=== PATIENT | male | born 1950 | race Hispanic/Latino ===

== ENCOUNTER 2017-07-09 05:11 | Emergency (ER) | payer MEDICARE ==
[2017-07-09 05:48] LABS: APPEARANCE,URINE Cloudy (CLEAR); BILIRUBIN,URINE Negative (NEGATIVE); COLOR,URINE Yellow (YELLOW); GLUCOSE, URINE (UA) 500 mg/dL (NEGATIVE); KETONES,URINE Negative (NEGATIVE); LEUKOCYTE ESTERASE ,URINE Trace (NEGATIVE); NITRATE,URINE Negative (NEGATIVE); OCCULT BLOOD,URINE Large (NEGATIVE); PROTEIN,URINE POS 2+ (NEGATIVE)
[2017-07-09] MEDS ORDERED: MORPHINE SULFATE 4 MG/1ML SYG ONE (05:50)
[2017-07-09 05:53] LABS: BASOPHILS % (AUTO) 0.4 % (0.0-5.0); EOSINOPHILS % (AUTO) 1.4 % (0.0-8.0); HEMATOCRIT 41.4 % (42-54); LYMPHOCYTES % (AUTO) 15.9 % (21.0-51.0); MEAN CORPUSCULAR HEMOGLOBIN 29.8 pg (27.0-33.0); MEAN CORPUSCULAR HGB CONC 34.9 g/dL (32.0-36.0); MEAN CORPUSCULAR VOLUME 85.4 fL (79-99); MONOCYTES % (AUTO) 9.5 % (3.0-13.0); NEUTROPHILS % (AUTO) 72.8 % (40.0-77.0); PLATELET COUNT (AUTO) 160 K/uL (130-400); RED BLOOD CELL COUNT(AUTO) 4.85 MIL/uL (4.50-6.20); RED CELL DISTRIBUTION WIDTH 14.2 % (11.0-15.5); WHITE BLOOD COUNT (AUTO) 11.3 K/uL (4.8-10.8)
[2017-07-09 06:07] LABS: CREATININE 1.4 mg/dL (0.5-1.5); POTASSIUM 4.3 mmol/L (3.5-5.1)
[2017-07-09 06:11] LABS: ALBUMIN 3.9 g/dL (3.5-5.0); BILIRUBIN,TOTAL 0.6 mg/dL (0.2-1.0)
[2017-07-09 06:46] LABS: BACTERIA,URINE Few /HPF (None Seen); RBC,URINE >100 /HPF (0-1)
[2017-07-09 06:47] LABS: SQUAMOUS EPITHELIAL CELL,UR 0-2 /HPF (0-2); URIC ACID CRYSTALS,URINE Many /LPF (None Seen)
[2017-07-09] MEDS ORDERED: SODIUM CHLORIDE 0.9% 1000ML 1,000 ML IV ONE (08:00)
[2017-07-09] MEDS ORDERED: KETOROLAC TROMETHAMINE 30MG/ML ONE (08:00)
[2017-07-09] MEDS ORDERED: TAMSULOSIN HCL 0.4 MG CAP.ER.24H ONE (08:00)
== END 2017-07-09 09:23 | disposition home or self-care (01) ==
LOC: EDH 05:11
DX: N21.1 Calculus in urethra (principal); N13.30 Unspecified hydronephrosis; N20.1 Calculus of ureter; R31.9 Hematuria, unspecified; E07.9 Disorder of thyroid, unspecified; E11.9 Type 2 diabetes mellitus without complications; I10 Essential (primary) hypertension; E78.5 Hyperlipidemia, unspecified; Z79.82 Long term (current) use of aspirin; Z79.899 Other long term (current) drug therapy
CPT/HCPCS: 36415; 74176; 80053; 81001; 83690; 85025; 96374; 96375; 99285; J1885; J2270; J7030

== ENCOUNTER 2017-08-08 19:57 | Emergency (ER) | payer MEDICARE ==
[2017-08-08 20:15] LABS: APPEARANCE,URINE Clear (CLEAR); BILIRUBIN,URINE Negative (NEGATIVE); COLOR,URINE Yellow (YELLOW); GLUCOSE, URINE (UA) 250 mg/dL (NEGATIVE); KETONES,URINE Trace mg/dL (NEGATIVE); LEUKOCYTE ESTERASE ,URINE Negative (NEGATIVE); NITRATE,URINE Negative (NEGATIVE); OCCULT BLOOD,URINE Negative (NEGATIVE); PROTEIN,URINE POS 2+ (NEGATIVE)
[2017-08-08] MEDS ORDERED: ONDANSETRON HCL 4 MG/2 ML VIAL ONE (20:41)
[2017-08-08] MEDS ORDERED: KETOROLAC TROMETHAMINE 30MG/ML ONE (20:41)
[2017-08-08 20:47] LABS: BACTERIA,URINE Rare /HPF (None Seen); RBC,URINE 0-1 /HPF (0-1); WBC,URINE 0-1 /HPF (0-1)
[2017-08-08 20:48] LABS: SQUAMOUS EPITHELIAL CELL,UR Rare /HPF (0-2); URIC ACID CRYSTALS,URINE Few /LPF (None Seen)
[2017-08-08 20:55] LABS: CREATININE 1.5 mg/dL (0.5-1.5)
[2017-08-08 20:57] LABS: BASOPHILS % (AUTO) 0.5 % (0.0-5.0); EOSINOPHILS % (AUTO) 0.9 % (0.0-8.0); HEMATOCRIT 42.6 % (42-54); INR 0.94 (0.85-1.15); LYMPHOCYTES % (AUTO) 12.4 % (21.0-51.0); MEAN CORPUSCULAR HEMOGLOBIN 28.8 pg (27.0-33.0); MEAN CORPUSCULAR HGB CONC 33.7 g/dL (32.0-36.0); MEAN CORPUSCULAR VOLUME 85.5 fL (79-99); MONOCYTES % (AUTO) 7.9 % (3.0-13.0); NEUTROPHILS % (AUTO) 78.3 % (40.0-77.0); PARTIAL THROMBOPLASTIN TIME 25.5 SEC (26.3-35.5); PLATELET COUNT (AUTO) 160 K/uL (130-400); PROTHROMBIN TIME 9.9 SEC (9.6-11.6); RED BLOOD CELL COUNT(AUTO) 4.98 MIL/uL (4.50-6.20); RED CELL DISTRIBUTION WIDTH 14.4 % (11.0-15.5); WHITE BLOOD COUNT (AUTO) 13.2 K/uL (4.8-10.8)
[2017-08-08 21:13] LABS: ALBUMIN 4.1 g/dL (3.5-5.0); BILIRUBIN,TOTAL 0.5 mg/dL (0.2-1.0); TOTAL PROTEIN, SERUM 7.3 g/dL (6.0-8.3)
[2017-08-08] MEDS ORDERED: TAMSULOSIN HCL 0.4 MG CAP.ER.24H ONE (21:32)
[2017-08-08] MEDS ORDERED: SODIUM CHLORIDE 0.9% 1000ML 1,000 ML IV ONE (21:32)
[2017-08-08] MEDS ORDERED: TRAMADOL HCL 50 MG TABLET ONE (21:33)
[2017-08-08 21:35] LABS: CREATINE KINASE MB 1.5 ng/mL (0.5-3.6)
== END 2017-08-08 22:11 | disposition home or self-care (01) ==
LOC: EDH 19:57
DX: N20.1 Calculus of ureter (principal); E11.9 Type 2 diabetes mellitus without complications; E78.5 Hyperlipidemia, unspecified; I10 Essential (primary) hypertension; E07.9 Disorder of thyroid, unspecified; Z87.442 Personal history of urinary calculi; Z98.890 Other specified postprocedural states
CPT/HCPCS: 36415; 74176; 80053; 81001; 82550; 82553; 83690; 84484; 85025; 85610; 85730; 93005; 96372; 96374; 99285; J1885; J2405; J7030

== ENCOUNTER 2018-08-24 23:36 | Emergency (ER) | payer OTHER ==
[2018-08-25] MEDS ORDERED: HYDROCODONE/ACETAMINOPHEN 10/325 MG TAB ONE (00:08)
== END 2018-08-25 01:40 | disposition home or self-care (01) ==
LOC: EDH 23:36
DX: M24.211 Disorder of ligament, right shoulder (principal); M25.551 Pain in right hip; E11.9 Type 2 diabetes mellitus without complications; E78.5 Hyperlipidemia, unspecified; I10 Essential (primary) hypertension; Z87.442 Personal history of urinary calculi; E07.9 Disorder of thyroid, unspecified; Z87.891 Personal history of nicotine dependence; Z79.899 Other long term (current) drug therapy; W17.89XA Other fall from one level to another, initial encounter; Y93.39 Activity, other involving climbing, rappelling and jumping off; Y92.89 Other specified places as the place of occurrence of the external cause; Y99.8 Other external cause status
CPT/HCPCS: 73030; 73502

== ENCOUNTER 2019-02-07 07:14 | Day surgery (SDC) | payer OTHER ==
[2019-02-04 10:59] LABS: BASOPHILS % (AUTO) 0.3 % (0.0-5.0); EOSINOPHILS % (AUTO) 1.9 % (0.0-8.0); HEMATOCRIT 40.3 % (42-54); LYMPHOCYTES % (AUTO) 24.5 % (21.0-51.0); MEAN CORPUSCULAR HEMOGLOBIN 27.2 pg (27.0-33.0); MEAN CORPUSCULAR HGB CONC 31.5 g/dL (32.0-36.0); MEAN CORPUSCULAR VOLUME 86.3 fL (79-99); MONOCYTES % (AUTO) 6.9 % (3.0-13.0); NEUTROPHILS % (AUTO) 65.4 % (40.0-77.0); PLATELET COUNT (AUTO) 238 K/uL (130-400); RED BLOOD CELL COUNT(AUTO) 4.67 MIL/uL (4.50-6.20); RED CELL DISTRIBUTION WIDTH 14.6 % (11.0-15.5); WHITE BLOOD COUNT (AUTO) 9.1 K/uL (4.8-10.8)
[2019-02-04 11:01] LABS: APPEARANCE,URINE Clear (CLEAR); BILIRUBIN,URINE Negative (NEGATIVE); COLOR,URINE Yellow (YELLOW); GLUCOSE, URINE (UA) Negative (NEGATIVE); KETONES,URINE Negative (NEGATIVE); LEUKOCYTE ESTERASE ,URINE Trace (NEGATIVE); NITRATE,URINE Negative (NEGATIVE); OCCULT BLOOD,URINE Small (NEGATIVE); PROTEIN,URINE Trace mg/dL (NEGATIVE); UROBILINOGEN,URINE 0.2 mg/dL (0.2-1.0)
[2019-02-04 11:05] VITALS: BP 151/69
[2019-02-04 11:07] LABS: BACTERIA,URINE Rare /HPF (None Seen); SQUAMOUS EPITHELIAL CELL,UR Rare /HPF (0-2)
[2019-02-04 11:30] LABS: CREATININE 1.2 mg/dL (0.5-1.5); POTASSIUM 4.5 mmol/L (3.5-5.1)
[2019-02-04 11:50] LABS: INR 1.02 (0.85-1.15); PROTHROMBIN TIME 10.7 SEC (9.6-11.6)
--- NOTE | 2019-02-05 11:36 | NUR ---
ABNORMAL UA RESULT REPORTED TO DR. HUFFMAN. NO NEW ORDERS RECEIVED.
[~2019-02-07] VITALS: Ht 170.2 cm; Wt 104.6 kg
[2019-02-07] VITALS (14 sets, daily range): BP systolic 145–180; BP diastolic 73–96
[~2019-02-07 07:14] MED LIST: GENTAMICIN SULFATE IV SCH; LEVO200 PO; METF-446 PO; METO25TA6 PO; NAPR-1023 PO; ROSU20TA31 PO; SODIUM CHLORIDE 0.9% IV SCH; TAMS-1 PO
[2019-02-07] MEDS ORDERED: LACTATED RINGERS 1000ML 0 ML IV ONE (07:23)
[2019-02-07] MEDS ORDERED: SODIUM CHLORIDE 0.9% 1000ML 1,000 ML IV ONE (07:40)
[2019-02-07] MEDS ORDERED: GENTAMICIN SULFATE 360 MG in SODIUM CHLORIDE 0.9% 100 ML IV SCH (07:45)
[2019-02-07] MEDS: CEFTRIAXONE SODIUM 1 GM IVP SCH ×2 (08:00→08:49)
[2019-02-07] MEDS ORDERED: DEXAMETHASONE SOD PHOSPHATE 10MG/ML 1ML VIAL ONE (08:32)
[2019-02-07] MEDS ORDERED: PROPOFOL 10 MG/ML 20ML VIAL IV ONE (08:32)
[2019-02-07] MEDS ORDERED: FENTANYL CITRATE PF 50 MCG/1 ML 2ML VIAL ONE (08:32)
[2019-02-07] MEDS ORDERED: ONDANSETRON HCL 4 MG/2 ML VIAL ONE (08:32)
[2019-02-07] MEDS ORDERED: MIDAZOLAM HCL 1 MG/ML 2ML VIAL ONE (08:32)
[2019-02-07] MEDS ORDERED: ROCURONIUM 10MG/1ML SYR 10 MG/ML ML ONE (08:33)
[2019-02-07] MEDS ORDERED: LEVO500T89 PO (09:46)
[2019-02-07] MEDS ORDERED: NEOSTIGMINE 5MG/5ML SYR IV ONE (10:26)
[2019-02-07] MEDS ORDERED: GLYCOPYRROLATE 1 MG/5 ML SYRINGE ONE (10:26)
[2019-02-07] MEDS ORDERED: KETOROLAC TROMETHAMINE 15MG/ML ONE (11:33)
--- NOTE | 2019-02-07 11:45 | NUR ---
PATIENT ARRIVED PATIENT BROUGHT TO DAY PATIENT VIA STRETCHER BY NASIR CAREY. PATIENT AAOX3, RESPIRATIONS UNLABORED, VITAL SIGNS STABLE. SCHULTE CATHETER IN PLACE AND DRAINING PINK TINGED URINE WITH CONTINUOUS BLADDER IRRIGATION. PATIENT C/O PAIN TO PENIS/ SCHULTE CATHETER INSERTION. PATIENT WAS GIVEN TRAMADOL IN PACU BEFORE TRANSFERRED TO DAY PATIENT. ADJUSTED SCHULTE CATHETER AND PATIENT VERBALIZED RELIEF. WILL CONTINUE TO MONITOR PATIENT.
--- NOTE | 2019-02-07 12:00 | NUR ---
SCHULTE/LEG BAG REPLACED SCHULTE BAG WITH LEG BAG AND INSTRUCTED PATIENT'S SPOUSE HOW TO REPLACE SCHULTE BAG WITH LEG BAG. INSTRUCTED PATIENT'S SPOUSE ON SCHULTE CATHETER CARE AND PROVIDED HANDOUTS WELL.
--- NOTE | 2019-02-07 12:07 | NUR ---
DISCHARGE INSTRUCTIONS PROVIDED TO PATIENT'S SPOUSE AND FOLLOW UP APPOINTMENT PROVIDED WELL. SCHULTE CARE INSTRUCTIONS PROVIDED AND EXTRA SCHULTE BAG AND URINAL PROVIDED WELL. PATIENT'S SPOUSE VERBALIZED UNDERSTANDING OF INSTRUCTIONS.
--- NOTE | 2019-02-07 12:35 | NUR ---
PATIENT DISCHARGED FROM FACILITY VIA WHEELCHAIR BY NURSE. PATIENT ASSISTED INTO PRIVATE VEHICLE DRIVEN BY FAMILY MEMBER.
== END 2019-02-07 12:35 | disposition home or self-care (01) ==
LOC: DAH 07:14
PROVIDERS: ATTEND Urology
DX: N40.1 Benign prostatic hyperplasia with lower urinary tract symptoms (principal); N21.0 Calculus in bladder; E11.9 Type 2 diabetes mellitus without complications; M19.90 Unspecified osteoarthritis, unspecified site; I10 Essential (primary) hypertension; Z98.890 Other specified postprocedural states; E66.9 Obesity, unspecified; Z68.36 Body mass index [BMI] 36.0-36.9, adult; Z79.899 Other long term (current) drug therapy; Z87.891 Personal history of nicotine dependence; Z79.2 Long term (current) use of antibiotics; Z79.84 Long term (current) use of oral hypoglycemic drugs
CPT/HCPCS: 36415 ×2; 52317; 52648; 71045; 80048; 81001; 82360; 82948 ×2; 85025; 85610; 85730; 87088; 93005; 96365; A4213; A4215; A4221; A4222; A4223 ×2; A4354; A4452; A4600; A4649; A4663; J0696; J1100; J1580; J1885; J2250; J2405; J2704; J2710; J3010; J3490; J7030; J7120

== ENCOUNTER → 2024-04-08 | Outpatient (CLI) | payer OTHER ==
[~2024-04-08] MED LIST changes: +DOXA4TAB3 PO; +EMPA25TA PO; +FINE10TA PO; -GENTAMICIN SULFATE IV SCH; +ICOS1CAP PO; -METF-446 PO; -NAPR-1023 PO; -ROSU20TA31 PO; +ROSU20TA98 PO; +SODI10PO2 PO; -SODIUM CHLORIDE 0.9% IV SCH; -TAMS-1 PO
--- NOTE | 2024-04-08 15:04 | HMCIMG ---
CT HEART SAVER PROMOTIONAL HISTORY: Calcium scoring COMPARISON: None TECHNIQUE: Computed tomography of the heart was performed with ECG gating and suspended respiration. Postprocessing was performed on a computer workstation to obtain diastolic phase images, determine calcium score and provide a quantitative assessment of extent of disease. This CT included only the heart. HeartSaver score is 4995.7. Please see cardiac calcium score report. The available CT chest images show no acute finding. CT was performed with one or more following dose reduction techniques: automated exposure control, adjustment of the mA and kv according to patient's size, or use of a iterative reconstruction technique.
== END | disposition home or self-care (01) ==
LOC: RAH 14:08
PROVIDERS: ATTEND Family Medicine
DX: Z13.6 Encounter for screening for cardiovascular disorders (principal)
CPT/HCPCS: 75571